=== PATIENT | female | born 1955 | race Caucasian/White ===

== ENCOUNTER 2017-12-10 18:13 | Emergency (ER) | payer BC ==
[~2017-12-10] VITALS: Ht 154.9 cm; Wt 66.2 kg
[~2017-12-10 18:13] MED LIST: ALPR.5 PO; ASPI81EC PO; ATEN50 PO; CLAR500; DIAZ5 PO; GABA100 PO; HYDACE5 PO; HYDACE7.5 PO; LOSA50 PO; NAPR500 PO; OXYC5 PO; SERT100 PO; SERT50 PO
[2017-12-10] MEDS ORDERED: ATEN50 (18:50)
[2017-12-10] MEDS ORDERED: HYDR-86 (18:50)
[2017-12-10] MEDS ORDERED: SERT25 (18:51)
[2017-12-10] MEDS ORDERED: GABA300 (18:51)
[2017-12-10] MEDS ORDERED: ALPR.5 (18:52)
[2017-12-10] MEDS ORDERED: Zoloft100 MG PO (18:52)
[2017-12-10] MEDS ORDERED: Neurontin300 MG (18:52)
[2017-12-10 19:22] LABS: BASOPHILS ABSOLUTE AUTO 0.08 K/mm3 (0.00-0.23); BASOPHILS PERCENT AUTO 1 % (0-2); EOSINOPHILS ABSOLUTE AUTO 0.68 K/mm3 (0.00-0.68); EOSINOPHILS PERCENT AUTO 5 % (0-6); Hemoglobin 10.8 g/dL (11.5-16.0); IMMATURE GRAN PERCENT AUTO 1 % (0-1); LYMPHOCYTES ABSOLUTE AUTO 2.53 K/mm3 (0.84-5.20); LYMPHOCYTES PERCENT AUTO 18 % (21-46); MONOCYTES ABSOLUTE AUTO 1.23 K/mm3 (0.16-1.47); MONOCYTES PERCENT AUTO 9 % (4-13); Mean Corpuscular HGB 33.6 pg (26.0-34.0); Mean Corpuscular HGB Conc 33.8 g/dL (31.5-36.5); Mean Corpuscular Volume 100 fL (80-100); Mean Platelet Volume 9.8 fL (9.1-12.4); NEUTROPHILS ABSOLUTE AUTO 9.18 K/mm3 (1.96-9.15); NEUTROPHILS PERCENT AUTO 66 % (41-73); Platelet Count 187 K/mm3 (150-400); RDW Coefficient Variation 13.4 % (11.7-14.2); RDW Standard Deviation 49.4 fL (35.1-46.3); Red Blood Cell Count 3.21 M/mm3 (3.80-5.20)
[2017-12-10 19:44] LABS: Bun/Creatinine Ratio 22.8 (12.0-20.0); Calcium, Blood 9.2 mg/dL (8.5-10.1); Creatinine, Blood 1.23 mg/dL (0.40-1.00)
[2017-12-10] MEDS ORDERED: POTCHL20ER PO (19:55)
[2017-12-10] MEDS ORDERED: MECL12.5 PO (19:55)
== END 2017-12-10 20:09 | disposition home or self-care (01) ==
LOC: ER 18:13
PROVIDERS: Emergency Medicine
DX: R42 Dizziness and giddiness (principal); E87.6 Hypokalemia; E86.0 Dehydration; N28.9 Disorder of kidney and ureter, unspecified; I10 Essential (primary) hypertension; E78.5 Hyperlipidemia, unspecified; F41.9 Anxiety disorder, unspecified; F32.9 Major depressive disorder, single episode, unspecified; F17.210 Nicotine dependence, cigarettes, uncomplicated; Z79.899 Other long term (current) drug therapy
CPT/HCPCS: 36415; 80048; 85025; 96361; 96374; 96375; 99284-25; J2060; J2405; J7030

== ENCOUNTER 2021-07-15 07:18 | Day surgery (SDC) | payer OTHER ==
[~2021-07-15] VITALS: Ht 153 cm; Wt 59.7 kg
[~2021-07-15 07:18] MED LIST changes: +GABA300 PO; +HYDR-86; +LOSARTAN-HCTZ1 EAC6 PO; +MECL12.5 PO; +Neurontin300 MG; +POTCHL20ER PO; +SERT25; +Zoloft100 MG PO
--- NOTE | 2021-07-15 09:20 | NUR ---
History, Chart, Medications and Allergies reviewed before start of procedure. Patient confirms NPO status and agrees with scheduled surgery. Patient States Post-Procedure ride home has been arranged with her , Dominik.
--- NOTE | 2021-07-15 09:20 | NUR ---
Reports taking all of colon prep with clear results.
[2021-07-15] MEDS ORDERED: Aspir 8181 MG PO (09:31)
[2021-07-15] MEDS ORDERED: MULTIPLE VITAM1 EACH PO (09:32)
[2021-07-15] MEDS ORDERED: KRILL OIL500 MG PO (09:32)
[2021-07-15] MEDS ORDERED: DERMACINRX FOL1 EAC2 PO (09:32)
--- NOTE | 2021-07-15 10:42 | NUR ---
07/15/21 1042 Yohannes Altamirano PATIENT DETERMINED TO BE ASA APPROPRIATE FOR PROPOFOL SEDATION PRIOR TO START OF PROCEDURE BY DR. CABRERA 3-LEAD EKG REVIEWED WITH PHYSICIAN PRIOR TO START OF PROCEDURE. Patient to ENDO 1 History, Chart, Medications and Allergies reviewed before start of procedure. MONITOR INTACT WITH CONTINUOUS PULSE OXIMETRY AND INTERMITTENT BP. O2 VIA N/C INTACT THROUGHOUT SEDATION/PROCEDURE.
--- NOTE | 2021-07-15 11:35 | NUR ---
Patient up to Ambulate independently. Gait steady. Discharge instructions reviewed with patient. Patient verbalizes understanding. Copy given to patient to take home. Discharged via wheelchair to private car for ride home WITH
== END 2021-07-15 23:05 | disposition home or self-care (01) ==
LOC: ORSCMMR 07:18 → ORD 10:00 → ORSCMMR 10:00
PROVIDERS: Internal Medicine Gastroenterology
PROC: 0DBL8ZX Excision of Transverse Colon, Via Natural or Artificial Opening Endoscopic, Diagnostic (ICD-10-PCS; principal; 2021-07-15 10:00)
PROC: 0DBN8ZX Excision of Sigmoid Colon, Via Natural or Artificial Opening Endoscopic, Diagnostic (ICD-10-PCS; principal; 2021-07-15 10:00)
PROC: 0DBM8ZX Excision of Descending Colon, Via Natural or Artificial Opening Endoscopic, Diagnostic (ICD-10-PCS; principal; 2021-07-15 10:00)
DX: Z12.11 Encounter for screening for malignant neoplasm of colon (principal); Z86.010 Personal history of colon polyps; D12.3 Benign neoplasm of transverse colon; D12.4 Benign neoplasm of descending colon; K63.5 Polyp of colon; I10 Essential (primary) hypertension; F41.9 Anxiety disorder, unspecified; Z79.899 Other long term (current) drug therapy; F17.210 Nicotine dependence, cigarettes, uncomplicated
CPT/HCPCS: 88305; J2250; J2704; J7120

== ENCOUNTER 2025-03-11 11:16 | Inpatient (IN) | payer OTHER ==
[~2025-03-11] VITALS: Ht 154.9 cm; Wt 67.3 kg
[~2025-03-11 11:16] MED LIST changes: +Aspir 8181 MG PO; +DERMACINRX FOL1 EAC2 PO; +KRILL OIL500 MG PO; +MULTIPLE VITAM1 EACH PO
[2025-03-11] MEDS ORDERED: Ketorolac Tromethamine 15mg Vial IV ONE (11:45)
[2025-03-11 12:45] LABS: BASOPHILS ABSOLUTE AUTO 0.12 K/mm3 (0.00-0.23); BASOPHILS PERCENT AUTO 1 % (0-2); EOSINOPHILS ABSOLUTE AUTO 0.04 K/mm3 (0.00-0.68); EOSINOPHILS PERCENT AUTO 0 % (0-6); Hematocrit 32.3 % (33.0-51.0); Hemoglobin 10.7 g/dL (11.5-16.0); IMMATURE GRAN ABSOLUTE AUTO 0.46 K/mm3 (0.00-0.10); IMMATURE GRAN PERCENT AUTO 2 % (0-1); LYMPHOCYTES ABSOLUTE AUTO 4.45 K/mm3 (0.84-5.20); LYMPHOCYTES PERCENT AUTO 24 % (21-46); MONOCYTES ABSOLUTE AUTO 1.83 K/mm3 (0.16-1.47); MONOCYTES PERCENT AUTO 10 % (4-13); Mean Corpuscular HGB Conc 33.1 g/dL (31.5-36.5); Mean Corpuscular Volume 96 fL (80-100); NEUTROPHILS ABSOLUTE AUTO 11.98 K/mm3 (1.96-9.15); NEUTROPHILS PERCENT AUTO 64 % (41-73); NRBC ABSOLUTE 0.00 K/mm3 (0.00-0.02); NRBC Auto 0.0 /100 WBC (0.0-0.2); Platelet Count 590 K/mm3 (150-400); RDW Coefficient Variation 13.5 % (11.7-14.2); RDW Standard Deviation 47.7 fL (35.1-46.3)
[2025-03-11 13:07] LABS: Source, Urine Voided
[2025-03-11 13:20] LABS: Bilirubin, Urine Neg (Neg); Glucose Qualitative, Urine Neg (Neg); Ketones, Urine 2+ (Neg); Leukocyte Esterase, Urine 1+ (Neg); Protein, Urine 2+ (Neg); Specific Gravity, Urine 1.005 (1.003-1.022); Urobilinogen, Urine NORM (Normal)
[2025-03-11 13:42] LABS: Color, Urine Pale Yellow (P-Yellow)
[2025-03-11 13:44] LABS: Alanine Aminotransfer (ALT/SGP 18.0 U/L (12-78); Albumin, Blood 2.2 g/dL (3.4-5.0); Albumin/Globulin Ratio 0.6 (0.8-1.8); Anion Gap 13.0 mmol/L (3-11); Aspartate Aminotrans (AST/SGOT 33.0 U/L (12-37); Bilirubin, Total 0.4 mg/dL (0.1-1.0); Blood Urea Nitrogen 16.0 mg/dL (8-24); CO2, Blood 24.0 mmol/L (21-32); Calcium, Blood 9.4 mg/dL (8.5-10.1); Chloride, Blood 100.0 mmol/L (98-108); Creatinine, Blood 0.8 mg/dL (0.40-1.00); Globulin, Blood 4.0 g/dL (2.2-4.0); Glucose, Blood 106.0 mg/dL (70-99); Potassium, Blood 3.5 mmol/L (3.5-5.5); Sodium, Blood 133.0 mmol/L (136-145); Total Protein, Blood 6.2 g/dL (6.4-8.2)
[2025-03-11 13:46] LABS: Red Blood Cells, Urine 0-2 /hpf (0-2)
[2025-03-11] MEDS ORDERED: LORazepam 2 MG/ML 1ML Injection IV ONE (15:05)
[2025-03-11] MEDS ORDERED: DiphenhydrAMINE HCl 50 MG/ML 1ML Vial IV ONE (15:25)
[2025-03-11] MEDS ORDERED: Piperacillin/Tazobactam Sod 3.375 GM in NS 100 ML IV ONE (15:25)
[2025-03-11] MEDS ORDERED: Ondansetron HCl 2 MG / ML 2ML Vial IV PRN (15:50)
[2025-03-11] MEDS ORDERED: Morphine Sulfate 4 MG/1 ML Injection IV PRN (15:50)
[2025-03-11] MEDS ORDERED: FLU VACC TS2025(65UP)/MF59C/PF 45 MCG/0.5 ML SYRINGE IM SCH (15:50)
[2025-03-11] MEDS ORDERED: NS 1,000 ML IV SCH (16:10)
[2025-03-11 17:52] VITALS: BP 100/79
--- NOTE | 2025-03-11 18:33 | NUR ---
ADMIT PT ADMITTED TO UNIT. BREATHING EVEN & UNLABORED. HEART REGULAR. 7/10 PAIN REPORTED IN HER LLQ. BSX4 ARE HYHPERACTIVE. HARD AREA FELT TO LLQ AND PT STATES THIS HAS BEEN THERE BUT STARTED OUT SMALLER IN SIZE. HEART SOUNDS REGULAR. PT IS ORIENTED AND COOPERATIVE WITH NPO STATUS. CALL LIGHT IN REACH. PT PLEASANT AND DENIES OTHER NEEDS AT THIS TIME.
[2025-03-11 19:21] VITALS: BP 93/56
[2025-03-11] MEDS ORDERED: Piperacillin/Tazobactam Sod 3.375 GM in NS 100 ML IV SCH (20:00)
[2025-03-11] MEDS ORDERED: Lactobacil 2-S.Thermo-Bifido 1 1 Cap PO SCH (21:00)
[2025-03-12 04:46] LABS: BASOPHILS ABSOLUTE AUTO 0.11 K/mm3 (0.00-0.23); BASOPHILS PERCENT AUTO 1 % (0-2); EOSINOPHILS ABSOLUTE AUTO 0.11 K/mm3 (0.00-0.68); EOSINOPHILS PERCENT AUTO 1 % (0-6); Hematocrit 30.0 % (33.0-51.0); Hemoglobin 9.9 g/dL (11.5-16.0); IMMATURE GRAN ABSOLUTE AUTO 0.29 K/mm3 (0.00-0.10); IMMATURE GRAN PERCENT AUTO 2 % (0-1); LYMPHOCYTES ABSOLUTE AUTO 3.32 K/mm3 (0.84-5.20); LYMPHOCYTES PERCENT AUTO 20 % (21-46); MONOCYTES ABSOLUTE AUTO 1.53 K/mm3 (0.16-1.47); MONOCYTES PERCENT AUTO 9 % (4-13); Mean Corpuscular HGB Conc 33.0 g/dL (31.5-36.5); Mean Corpuscular Volume 97 fL (80-100); NEUTROPHILS ABSOLUTE AUTO 11.33 K/mm3 (1.96-9.15); NEUTROPHILS PERCENT AUTO 68 % (41-73); NRBC ABSOLUTE 0.00 K/mm3 (0.00-0.02); NRBC Auto 0.0 /100 WBC (0.0-0.2); Platelet Count 526 K/mm3 (150-400); RDW Coefficient Variation 13.6 % (11.7-14.2); RDW Standard Deviation 48.1 fL (35.1-46.3)
--- NOTE | 2025-03-12 04:54 | NUR ---
SHIFT SUMMARY: PT AOX4, PLEASANT, COOPERATIVE IN CARE, ABLE TO MAKE NEEDS KNOWN. SOME FORGETFULNESS, BUT CALLS APPROPRIATELY. SOME PAIN IN THE ABD MEDICATED PER EMR. PT HAS BEEN NPO, TOLERATING WELL. CLAIMS ONLY LOOSE BMS LAST FEW WEEKS BUT NO BM IN LAST FEW DAYS. STATES THEY HAVENT BEEN ABLE TO EAT A DECENT MEAL IN WEEKS, HAVE LOST SOME WEIGHT. PT TOLERATING MEDICATIONS WELL. SBA TO THE BATHROOM TO VOID. NO ACUTE OVERNIGHT EVENTS. PT IN BED SLEEPING, BED IN LOWEST POSITION, CALL LIGHT IN REACH. CONTINUING CARE.
[2025-03-12 05:06] VITALS: BP 101/62
[2025-03-12 05:06] LABS: Alanine Aminotransfer (ALT/SGP 14.0 U/L (12-78); Albumin, Blood 2.0 g/dL (3.4-5.0); Albumin/Globulin Ratio 0.6 (0.8-1.8); Anion Gap 12.0 mmol/L (3-11); Aspartate Aminotrans (AST/SGOT 20.0 U/L (12-37); Bilirubin, Total 0.4 mg/dL (0.1-1.0); Blood Urea Nitrogen 17.0 mg/dL (8-24); CO2, Blood 23.0 mmol/L (21-32); Calcium, Blood 8.7 mg/dL (8.5-10.1); Chloride, Blood 105.0 mmol/L (98-108); Creatinine, Blood 0.9 mg/dL (0.40-1.00); Globulin, Blood 3.4 g/dL (2.2-4.0); Glucose, Blood 85.0 mg/dL (70-99); Potassium, Blood 3.0 mmol/L (3.5-5.5); Sodium, Blood 137.0 mmol/L (136-145); Total Protein, Blood 5.4 g/dL (6.4-8.2)
[2025-03-12 07:13] VITALS: BP 97/61
[2025-03-12] MEDS ORDERED: Enoxaparin 40 MG/0.4 ML SYR SC SCH (09:00)
--- NOTE | 2025-03-12 09:33 | NUR ---
WHEN ROUNDING WITH DR. KEYES, NOTIFIED HIM OF PATIENTS POTASSIUM OF 3.0 ON 03/12
--- NOTE | 2025-03-12 12:27 | NUR ---
Pt. is awake in bed and elcomes my visit. Spouse is at bedside. Pt. Facilitated a life review and considered matters of roman and belief. Listend with empathy and compassion. Pt. verbalizes that he r roman is personal but has not praticipated in [employer] in many years. Pt. displays evidence of being encouraged and open. Prayed with the Pt. Pt. and spouse both verbalize gratitude for the spiritual care visit.
[2025-03-12] MEDS ORDERED: NS 1,000 ML IV SCH (12:30)
[2025-03-12] MEDS ORDERED: Potassium Chloride 10 Meq Tablet SA PO ONE (12:30)
[2025-03-12 13:22] LABS: Prothrombin Time Results 12.4 Sec (9.7-11.5)
[2025-03-12 14:29] VITALS: BP 111/71
--- NOTE | 2025-03-12 15:41 | NUR ---
SUMMARY PT WAS NPO AT START OF SHIFT FOR PENDING PROCEDURE. DR. ARREOLA ROUNDED UNDER DR. CHINO THIS AM AND ORDERS WERE PLACED FOR CT GUIDED DRAIN PLACEMENT. CALLED CERTIFIED HEARING INSTRUMENT DISPENSER THIS AFTERNOON FOR AN ESTIMATE TIMEFRAME BUT HE STATED RADIOLOGY WAS SPEAKING TO DR. KEYES AND DR KEYES ASSUMED LOVENOX WAS GIVEN THIS AM, BUT I DID HOLD PENDING PROCDURE. HOWEVER, RADIOLOGY REQUIRES PT, INR, PTT PRIOR TO PROCEDURE. CT CERTIFIED HEARING INSTRUMENT DISPENSER STATED SHE WOULD BE PUSHED BACK TO TOMORROW. DR. KEYES NOTIFIED AND ORDERED REGULAR DIET TODAY ADN FOR PT TO BE NPO AT MIDNIGHT. PT CONTINUES TO HAVE ABD PAIN TO LLQ. PRN OXYCODONE GIVEN WITH REPORTED RELIEF. PT STATES THE PAIN COMES IN WAVES. POTASSIUM REPLACED TODAY WITH IV INFUSION AND ORAL TABLETS.
[2025-03-12 19:15] VITALS: BP 103/68
--- NOTE | 2025-03-12 22:10 | NUR ---
ASSUMPTION OF CARE: THIS RN ASSUMED CARE OF PATIENT. AWAKE DURING SHIFT CHANGE REPORT. LYING SUPINE IN BED. BREATHING EVEN AND UNLABORED c ROOM AIR. NS @ 200mL/hr. STATES CRAVING CIGARETTE; OFFERED NICOTINE REPLACEMENT GUM. NO C/O PAIN OR DISCOMFORT AT THIS TIME. BED IN LOWEST POSITION. CALL LIGHT WITHIN REACH. ACUTE NEEDS MET.
[2025-03-13 04:50] VITALS: BP 122/75
--- NOTE | 2025-03-13 06:23 | NUR ---
END OF SHIFT SUMMARY: A&Ox3-4 c INTERMITTENT CONFUSION; EASILY REORIENTED. PLEASANT AND COOPERATIVE WITH CARE. DOES NOT UTILIZE CALL LIGHT; BED ALARM SET. VSS. BREATHING EVEN AND UNLABORED c RA. CONTINENT/INCONTINENT OF BLADDER AND REQUIRED FULL BED CHANGE THIS MORNING AFTER DENYING NEEDING TO GO ALL NIGHT. LBM 03/12/18. HAS BEEN NPO SINCE MIDNIGHT IN ANTICIPATION OF CT-GUIDED DRAIN PLACEMENT LATER TODAY. ALL DRINKS AND FOODS REMOVED FROM ROOM SHE KEEPS REQUESTING DRINKS AND FORGETS NPO STATUS. AMBULATES 1PA c FWW SECONDARY TO WEAKNESS. MEDS WHOLE c FLUIDS. BED IN LOWEST POSITION, CALL LIGHT WITHIN REACH, ALL NEEDS MET. REPORT TO ONCOMING NURSE.
[2025-03-13] MEDS ORDERED: NS 250 ML IV PRN (07:35)
[2025-03-13 07:49] VITALS: BP 111/75
--- NOTE | 2025-03-13 10:45 | NUR ---
PATIENT ARRIVED BACK FROM CT GUIDED DRAIN PLACEMENT. ACORDIAN DRAIN IN PLACE WITH PURULENT SALGADO COLORED OUTPUT. PATIENT REPORTS 7/10 PAIN, OXYCODONE ORDERED TO TREAT. REGULAR DIET PER DR KEYES ORDER. PATIENT CURRENTLY CALM AND COOPERATIVE, DENIES ANY NEEDS AT THIS TIME.
[2025-03-13 10:51] VITALS: BP 127/75
[2025-03-13 12:02] LABS: BASOPHILS ABSOLUTE AUTO 0.11 K/mm3 (0.00-0.23); BASOPHILS PERCENT AUTO 1 % (0-2); EOSINOPHILS ABSOLUTE AUTO 0.07 K/mm3 (0.00-0.68); EOSINOPHILS PERCENT AUTO 0 % (0-6); Hematocrit 28.6 % (33.0-51.0); Hemoglobin 9.6 g/dL (11.5-16.0); IMMATURE GRAN ABSOLUTE AUTO 0.35 K/mm3 (0.00-0.10); IMMATURE GRAN PERCENT AUTO 2 % (0-1); LYMPHOCYTES ABSOLUTE AUTO 3.03 K/mm3 (0.84-5.20); LYMPHOCYTES PERCENT AUTO 16 % (21-46); MONOCYTES ABSOLUTE AUTO 1.52 K/mm3 (0.16-1.47); MONOCYTES PERCENT AUTO 8 % (4-13); Mean Corpuscular HGB Conc 33.6 g/dL (31.5-36.5); Mean Corpuscular Volume 99 fL (80-100); NEUTROPHILS ABSOLUTE AUTO 13.75 K/mm3 (1.96-9.15); NEUTROPHILS PERCENT AUTO 73 % (41-73); NRBC ABSOLUTE 0.00 K/mm3 (0.00-0.02); NRBC Auto 0.0 /100 WBC (0.0-0.2); Platelet Count 486 K/mm3 (150-400); RDW Coefficient Variation 13.8 % (11.7-14.2); RDW Standard Deviation 49.5 fL (35.1-46.3)
[2025-03-13 12:17] VITALS: BP 105/61
[2025-03-13 12:22] LABS: Anion Gap 12.0 mmol/L (3-11); Blood Urea Nitrogen 8.0 mg/dL (8-24); CO2, Blood 21.0 mmol/L (21-32); Calcium, Blood 8.3 mg/dL (8.5-10.1); Chloride, Blood 107.0 mmol/L (98-108); Creatinine, Blood 0.76 mg/dL (0.40-1.00); Glucose, Blood 93.0 mg/dL (70-99); Potassium, Blood 3.4 mmol/L (3.5-5.5); Sodium, Blood 137.0 mmol/L (136-145)
[2025-03-13 15:20] VITALS: BP 125/76
--- NOTE | 2025-03-13 15:42 | NUR ---
DANILO SUMMARY; PT A/OX4 AND SBA TO THE RESTROOM. PT HAS HAD DARK BILE COLORED OUTPUT FROM NG TUBE. SEE INPUT/OUPUT NOTES. NG TUBE SET ON LOW-INTERMITTENT SUCTION. PT CONTINUES TO BE NPO, WITH SMALL AMOUNTS OF ICE CHIPS TO MOISTEN MOUTH. PT HAS HAD LITTLE TO NO NAUSEA OR PAIN TODAY. BED IN LOW POSITION AND CALL LIGHT WITHIN REACH. VSS.
--- NOTE | 2025-03-13 16:18 | NUR ---
SHIFT SUMMARY; PT A/OX4, INCONTINANT W/ BRIEFS, AND SBA. PT KEPT NPO THIS AM FOR IMAGE GUIDED PROCEDURE. PT MEDICATED PER EMAR FOR PAIN PRN. PT TRANSFERED TO IMAGING VIA BED AT APPROX 1050 AND RETURNED TO ROOM AT APPROX 1145. ACCORDIAN DRAIN ASSESSED. SMALL AMOUNT OF THICK BROWN LIQUID SEEN IN DRAINAGE BAG. DUE TO HX OF ETOH ABUSE, CIWA ORDERS HAVE BEEN ADDED TO PT CHART ASSESSMENTS, HOWEVER PT NOT SEEN TO HAVE WITHDRAWAL S/SXS. AFTER PROCEDURE PT'S DIET HAS CHANGED TO REGULAR. PT TOLERATING WELL. BED IN LOW POSITION. CALL LIGHT WITHIN REACH. VSS.
[2025-03-13 19:18] VITALS: BP 122/81
--- NOTE | 2025-03-14 03:48 | NUR ---
NOC SUMMARY- PT PAIN MANAGED WELL. PT REPORTED HAVING HALLUCINATIONS WITH ATIVAN NIGHT BEFORE. PT HUSBANDS CONFIRMS THAT PT HAS HX OF ALTERED BEHAVIOR WITH ATIVAN USE. PT HOME ATARAX WAS ORDERED. PT NGT IS PUTTING OUT GREEN BILE. PT IS VOIDING AND PASSING GAS. PT HAS BEEN RESTING IN NO DISTRESS. CALL LIGHT IN REACH.
--- NOTE | 2025-03-14 03:53 | NUR ---
NOC SUMMARY- PT HAS BEEN RESTING QUIETLY. PT DRAIN SITES REMAIN C/D/I. PT DRAIN HAS KAY/ GREEN DRAINAGE. PT IS VOIDING AND TOLERATING PO. NO NEW ISSUES NOTED. CALL LIGHT IN REACH.
[2025-03-14 05:26] VITALS: BP 117/68
[2025-03-14 06:05] LABS: BASOPHILS ABSOLUTE AUTO 0.10 K/mm3 (0.00-0.23); BASOPHILS PERCENT AUTO 1 % (0-2); EOSINOPHILS ABSOLUTE AUTO 0.19 K/mm3 (0.00-0.68); EOSINOPHILS PERCENT AUTO 2 % (0-6); Hematocrit 27.6 % (33.0-51.0); Hemoglobin 9.2 g/dL (11.5-16.0); IMMATURE GRAN ABSOLUTE AUTO 0.19 K/mm3 (0.00-0.10); IMMATURE GRAN PERCENT AUTO 2 % (0-1); LYMPHOCYTES ABSOLUTE AUTO 3.04 K/mm3 (0.84-5.20); LYMPHOCYTES PERCENT AUTO 24 % (21-46); MONOCYTES ABSOLUTE AUTO 1.36 K/mm3 (0.16-1.47); MONOCYTES PERCENT AUTO 11 % (4-13); Mean Corpuscular HGB Conc 33.3 g/dL (31.5-36.5); Mean Corpuscular Volume 96 fL (80-100); NEUTROPHILS ABSOLUTE AUTO 8.06 K/mm3 (1.96-9.15); NEUTROPHILS PERCENT AUTO 62 % (41-73); NRBC ABSOLUTE 0.00 K/mm3 (0.00-0.02); NRBC Auto 0.0 /100 WBC (0.0-0.2); Platelet Count 479 K/mm3 (150-400); RDW Coefficient Variation 13.6 % (11.7-14.2); RDW Standard Deviation 48.4 fL (35.1-46.3)
[2025-03-14 06:36] LABS: Anion Gap 10.0 mmol/L (3-11); Blood Urea Nitrogen 5.0 mg/dL (8-24); CO2, Blood 23.0 mmol/L (21-32); Calcium, Blood 8.4 mg/dL (8.5-10.1); Chloride, Blood 104.0 mmol/L (98-108); Creatinine, Blood 0.68 mg/dL (0.40-1.00); Glucose, Blood 94.0 mg/dL (70-99); Potassium, Blood 3.5 mmol/L (3.5-5.5); Sodium, Blood 133.0 mmol/L (136-145)
[2025-03-14 07:14] VITALS: BP 121/75
[2025-03-14] MEDS ORDERED: Enoxaparin 40 MG/0.4 ML SYR SC SCH (09:00)
[2025-03-14 15:31] VITALS: BP 140/85
[2025-03-14] MEDS ORDERED: LORazepam 2 MG/ML 1ML Injection IV PRN (17:15)
--- NOTE | 2025-03-14 18:34 | NUR ---
Pt. is awake and welcomes my visit. Pt. is pleasant. Facilitated an update. Pt. verbalized concerns about her diagnosis, and displayed frustration that she didn't feel here was a good path moving forward. Listened with empathy and a calming presence. Considered matters of roman and family. Prayed with Pt. Pt. verbalized gratitude for the spiritual care visit and welcomed this content manager to return.
[2025-03-14 19:38] VITALS: BP 151/77
[2025-03-15 03:34] VITALS: BP 125/72
[2025-03-15 03:35] VITALS: BP 125/72
[2025-03-15 03:40] LABS: Hematocrit 26.0 % (33.0-51.0); Hemoglobin 8.7 g/dL (11.5-16.0); Mean Corpuscular HGB Conc 33.5 g/dL (31.5-36.5); Mean Corpuscular Volume 97 fL (80-100); NRBC ABSOLUTE 0.00 K/mm3 (0.00-0.02); NRBC Auto 0.0 /100 WBC (0.0-0.2); Platelet Count 472 K/mm3 (150-400); RDW Coefficient Variation 13.6 % (11.7-14.2); RDW Standard Deviation 48.3 fL (35.1-46.3)
[2025-03-15 04:18] LABS: Anion Gap 12.0 mmol/L (3-11); Blood Urea Nitrogen 5.0 mg/dL (8-24); CO2, Blood 21.0 mmol/L (21-32); Calcium, Blood 8.3 mg/dL (8.5-10.1); Chloride, Blood 106.0 mmol/L (98-108); Creatinine, Blood 0.78 mg/dL (0.40-1.00); Ferritin, Serum 285.0 ng/mL (8-252); Glucose, Blood 84.0 mg/dL (70-99); Potassium, Blood 3.5 mmol/L (3.5-5.5); Sodium, Blood 135.0 mmol/L (136-145); Total Iron Binding Capacity 113.0 ug/dL (250-450)
--- NOTE | 2025-03-15 05:53 | NUR ---
SHIFT SUMMARY NO ACUTE CHANGES TONIGHT. PT IS POD 2 CT GUIDED NAEO ABCESS DRAIN PLACEMENT. SCANT AMOUNT OF LIGHT BROWN STOOL NOTED IN BAG, DRAIN COMPRESSED AND DRESSING INTACT. SWELLING NOTED TO RIGHT LATERAL ABD. TOLERABLE PAIN REPORTED. PT OOB X1 TO BSC, OTHERWISE INCONT VOIDS T/O NIGHT. PT ABLE TO CHANGE HERSELF. IVF INFUSING PER ORDERS. PT IS A/OX4 WITH VSS. GERA PO, DENIES N/V; REPORTS LACK OF APPETITE. PT CURRENTLY RESTING IN BED WITH EYES CLOSE, RESP EVEN AND CALL LIGHT IN REACH. WILL GIVE REPORT TO ONCOMING RN
[2025-03-15 07:04] VITALS: BP 142/79
[2025-03-15] MEDS ORDERED: Folic Acid 1 MG TAB PO SCH (09:00)
[2025-03-15 15:22] VITALS: BP 162/81
--- NOTE | 2025-03-15 16:47 | NUR ---
SHIFT SUMMARY POD 2 PIGTAIL DRAIN PLACEMENT PT IS A/OX4. AMBULATING IND TO BSC IN ROOM. PT IS ABLE TO AMBULATE SAFELY W/ DRAIN. TOLERATING PO INTAKE, DENIES N/V. PAIN IS MANAGED PER EMAR. PT IS INCONT BASELINE, BUT CARING FOR SELF. DR RIVERA PLAN IS FOR DC TOMORROW IF OK BY SURGERY. NEEDS MET, CALL LIGHT IN REACH, BED IN LOWEST POSITION.
[2025-03-15 18:52] LABS: Magnesium, Blood 0.9 mg/dL (1.6-2.4); Phosphorus, Blood 2.7 mg/dL (2.5-4.9)
[2025-03-15 19:28] VITALS: BP 136/77
[2025-03-15] MEDS ORDERED: LOSARTAN POTASS25 M2 PO (20:00)
[2025-03-15] MEDS ORDERED: OMEP20ER PO (20:01)
[2025-03-15] MEDS ORDERED: Magnesium Sulf 2 GM/Water 50ML 50 ML IV ONE (20:55)
[2025-03-16 03:10] VITALS: BP 140/76
[2025-03-16 04:13] LABS: Anion Gap 10.0 mmol/L (3-11); Blood Urea Nitrogen 5.0 mg/dL (8-24); CO2, Blood 22.0 mmol/L (21-32); Calcium, Blood 8.3 mg/dL (8.5-10.1); Chloride, Blood 106.0 mmol/L (98-108); Creatinine, Blood 0.72 mg/dL (0.40-1.00); Glucose, Blood 83.0 mg/dL (70-99); Magnesium, Blood 1.6 mg/dL (1.6-2.4); Phosphorus, Blood 2.9 mg/dL (2.5-4.9); Potassium, Blood 3.5 mmol/L (3.5-5.5); Sodium, Blood 134.0 mmol/L (136-145)
--- NOTE | 2025-03-16 05:07 | NUR ---
SHIFT SUMMARY NO ACUTE EVENTS OVERNIGHT. PT IV FLUIDS INFUSING WITH MULTIPLE DELAYS DUE TO OTHER INFUSIONS NEEDING COMPLETION. PT INDEPENDENT TO BSC. PIGTAIL DRAIN PATENT AND DRAINING SMALL AMOUNT OF BROWN LIQUID.
[2025-03-16 07:24] VITALS: BP 121/69
[2025-03-16] MEDS ORDERED: Lidocaine HCL 1% 10 ML MDV INFIL ONE (10:00)
[2025-03-16 14:24] VITALS: BP 134/71
--- NOTE | 2025-03-16 16:11 | NUR ---
Pt to CT via W/c.
[2025-03-16 19:27] VITALS: BP 122/70
--- NOTE | 2025-03-16 20:19 | NUR ---
REPORT TO THAD BOO TO ASSUME CARE AT THIS TIME.
[2025-03-17 03:23] VITALS: BP 111/74
[2025-03-17 03:49] LABS: Anion Gap 11.0 mmol/L (3-11); Blood Urea Nitrogen 5.0 mg/dL (8-24); CO2, Blood 22.0 mmol/L (21-32); Calcium, Blood 8.8 mg/dL (8.5-10.1); Chloride, Blood 107.0 mmol/L (98-108); Creatinine, Blood 0.78 mg/dL (0.40-1.00); Glucose, Blood 96.0 mg/dL (70-99); Magnesium, Blood 1.5 mg/dL (1.6-2.4); Phosphorus, Blood 2.9 mg/dL (2.5-4.9); Potassium, Blood 3.8 mmol/L (3.5-5.5); Sodium, Blood 136.0 mmol/L (136-145)
--- NOTE | 2025-03-17 06:12 | NUR ---
SHIFT SUMMARY PATIENT RESTED OVER NIGHT WELL, REQUESTED 2 PRN DOSES OF PAIN MEDICATIONS ON THIS SHIFT. NO ACUTE EVENTS NOTED. INDEPENDENT TO BSC.
[2025-03-17 07:17] VITALS: BP 122/78
[2025-03-17] MEDS ORDERED: Magnesium Sulf 2 GM/Water 50ML 50 ML IV ONE (11:10)
[2025-03-17] MEDS ORDERED: VISBIOME 112.51 EACH PO (12:55)
[2025-03-17] MEDS ORDERED: MULVITA PO (12:57)
[2025-03-17] MEDS ORDERED: AMOCLA875 PO (12:57)
[2025-03-17] MEDS ORDERED: B-1100 M1 PO (12:58)
[2025-03-17] MEDS ORDERED: Percocet 5-3251 EACH PO (13:03)
--- NOTE | 2025-03-17 14:24 | NUR ---
PATIENT DISCHARGED HOME WITH HER . HARD SCRIPT GIVEN TO THE PATIENT. DISCHARGE INSTRUCTIONS GIVEN TO THE PATIENT. RN EXPLAINED HOW TO CARE FOR AND DRESS DRAIN SITE, PATIENT SENT HOME WITH DRESSINGS.
== END 2025-03-17 14:10 | disposition home health service (06) | DRG 871 ==
LOC: ER 11:16 → SURS 15:36
PROVIDERS: Emergency Medicine; Internal Medicine; ADMIT Family Medicine
PROC: 0W9G30Z Drainage of Peritoneal Cavity with Drainage Device, Percutaneous Approach (ICD-10-PCS; principal; 2025-03-11)
PROC: 3E03329 Introduction of Other Anti-infective into Peripheral Vein, Percutaneous Approach (ICD-10-PCS; 2025-03-11)
DX: A41.51 Sepsis due to Escherichia coli [E. coli] (principal); K65.1 Peritoneal abscess; E87.1 Hypo-osmolality and hyponatremia; K57.20 Diverticulitis of large intestine with perforation and abscess without bleeding; E87.20 Acidosis, unspecified; K86.3 Pseudocyst of pancreas; Z66 Do not resuscitate; I10 Essential (primary) hypertension; F41.9 Anxiety disorder, unspecified; E78.5 Hyperlipidemia, unspecified; F32.A Depression, unspecified; M54.9 Dorsalgia, unspecified; G89.29 Other chronic pain; F17.210 Nicotine dependence, cigarettes, uncomplicated; D13.6 Benign neoplasm of pancreas; R54 Age-related physical debility; F10.10 Alcohol abuse, uncomplicated; E87.6 Hypokalemia; D63.8 Anemia in other chronic diseases classified elsewhere; E83.42 Hypomagnesemia; K29.80 Duodenitis without bleeding; Z88.8 Allergy status to other drugs, medicaments and biological substances; Z86.79 Personal history of other diseases of the circulatory system; Z98.890 Other specified postprocedural states; Z88.0 Allergy status to penicillin; Z87.09 Personal history of other diseases of the respiratory system; Z79.899 Other long term (current) drug therapy; Z79.82 Long term (current) use of aspirin; Z87.19 Personal history of other diseases of the digestive system
CPT/HCPCS: 36415; 49405; 74177; 80048; 80053; 81001; 82728; 83540; 83550; 83605; 83690; 83735; 84100; 85025; 85027; 85610; 85730; 87040; 87070; 87075; 87077; 87086; 87186; 96374-59; 96375; 99285-25; A9270; J1200; J1650; J1885; J1938; J2003; J2060; J2270; J2470; J2543; J3475; J3480; J7030; J7050; J7120; Q9967